=== PATIENT | female | born 1980 | race Caucasian/White ===

== ENCOUNTER 2017-07-19 14:40 | Inpatient (IN) | END 2017-07-20 15:43 | disposition home or self-care (01) | DRG 778 ==

== ENCOUNTER 2017-07-27 12:46 | Outpatient (CLI) | END 2017-07-27 16:35 | disposition home or self-care (01) ==

== ENCOUNTER 2017-07-30 12:29 | Outpatient (CLI) | END 2017-07-30 13:45 | disposition home or self-care (01) ==

== ENCOUNTER 2017-09-14 22:51 | Outpatient (CLI) | END 2017-09-15 02:10 | disposition home or self-care (01) ==

== ENCOUNTER 2017-10-05 06:35 | Inpatient (IN) | END 2017-10-07 13:25 | disposition home or self-care (01) | DRG 775 ==